=== PATIENT | female | born 1945 ===

== ENCOUNTER 2017-05-02 08:00 | Outpatient (CLI) | payer SELFPAY ==
[2017-05-02 08:43] LABS: HEMOGLOBIN A1C 5.8 % (4.5-6.2)
[2017-05-02 09:01] LABS: CHOL/HDL RATIO 3.3 (0.00-4.99)
== END 2017-05-02 23:59 | disposition home or self-care (01) ==
LOC: HW HEART 08:00
DX: Z00.00 Encounter for general adult medical examination without abnormal findings (principal)
CPT/HCPCS: 36415

== ENCOUNTER 2018-07-10 02:31 | Outpatient (CLI) | payer SELFPAY ==
[2018-07-10 11:32] LABS: CHOL/HDL RATIO 3.06 (0.00-4.99)
== END 2018-07-10 23:59 | disposition home or self-care (01) ==
LOC: HW HEART 02:31
DX: Z13.6 Encounter for screening for cardiovascular disorders (principal)
CPT/HCPCS: 36415